=== PATIENT | female | born 1965 | race Caucasian/White ===

== ENCOUNTER 2024-09-24 13:51 | Emergency (ER) | payer BC, SELFPAY ==
[2024-09-24 13:52] VITALS: BP 183/100
[2024-09-24 14:58] VITALS: BP 143/86
[2024-09-24] MEDS: TORADOL 30 MG IV (14:59)
--- NOTE | 2024-09-24 15:17 | ED.GENMED ---
History of Present Illness
General
Chief Complaint: Back Pain
Source: patient
Exam Limitations: none
Time Seen by Provider: 09/24/24 14:09
Nursing documentation reviewed up to this point in time: agreed with
History of Present Illness
History of Present Illness:
58 y/o F with h/o anemia
on estrogen for perimenopause, usually doesn't get menstrual cycle
1 mo ago missed her estrogen and had a full period
missed dose of estrogen a few days ago and started having some mild vaginal bleeding
so when she started having cramps in her right side she thought itwas related to getting her menstrual cycle
but now sharla is right bakc/flank and wraps aroun dto RUQ
worse with deep breathing and changing position
some nausea but no vomiting, diarrhea, urinary sypmtoms
she has not had any fever/chills
but she does have worse pain with cough
the pain seems to come in waves sometimes
she called the [facility] and spoke with RN and was told to come to the ER
she has no pelvic pain
takes estrogen for hot flashes etc
Past History
Past History
ED Past Medical History: None
ED Past Surgical History: None
Social History
Tobacco: Non-smoker
Alcohol: None
Drug: None
Review of Systems
Review of Systems
Allergies reviewed?: Yes
All Other Systems: Not applicable
Phy Exam
Physical Exam
Physical Exam:
GENERAL: Alert , in no apparent distress, comfortable at rest, pain worse with movement
HEAD: NCAT
CARDIAC: Regular rate and rhythm, no edema
LUNGS: Clear breath sounds bilaterally, no acute respiratory distress, no wheezes/rales/rhonchi
ABDOMEN: Soft, RUQ tenderness, + butler's no r/g, mild R cva tenderness; , normal bowel sounds, nondistended
NEUROLOGICAL: Alert and oriented, no focal neuro deficits, CN intact, 5/5 strength, sensation intact, ambulation slight limp left leg
SKIN: Warm and dry, no rash
MUSCULOSKELETAL: No edema, well perfused.
Patient has no tenderness to palpation of the hip, minimal tenderness in the SI joint
no pain in the hip
Back: No midline tenderness, right lateral lumbar/htoracic pain, minimal tendenress to palpation laterally
neg striaght leg raise
able to flex 30 degrees
PSYCH: Normal and appropriate interaction.
Course
Orders/Labs/Results
Orders:
Orders
09/24/24 14:38
Ketorolac [Toradol] 30 mg IV NOW STA
09/24/24 14:39
Test Result ONCE
09/24/24 14:53
Complete Blood Count/With Diff Urgent
Comprehensive Metabolic Panel Urgent
D-Dimer Urgent
HCG, Serum Qualitative Screen Urgent
Lipase Urgent
09/24/24 15:34
US Abdomen Complete/Upper Urgent
Comment:
Reason For Exam: ruq pain, back pain, suspect martín
09/24/24 15:45
HYDROmorphone [Dilaudid] 0.5 mg IV NOW STA
09/24/24 18:39
CT Pe/abd/pel W Urgent
Reason For Exam: Ddimer elevation, right sided abd pain
09/24/24 19:26
Urinalysis Reflex To Culture Urgent
Date Specimen was Collected: 09/24/24
Time Specimen was Collected: 19:25
Urine Microscopic Reflex Cult Urgent
09/24/24 20:40
Oxycodone [Roxicodone] 5 mg PO NOW STA
Abnormal Lab Results
09/24/24 09/24/24
14:53 19:26
Lymphocytes % 19.7 L %
(20.5-51.1)
D-Dimer 0.58 H ug/mlFEU
(0.00-0.50)
BUN 18 H mg/dl
(7-17)
Glucose 285 H mg/dl
(70-99)
AST 101 H U/L
(14-36)
ALT 140 H U/L
(0-35)
Ur Occult Blood Reflex 4+ A
(Negative)
Urine RBC 3-6 A /HPF
(0-2)
Urine Bacteria (Reflex) Few A
(Negative)
Urine Glucose 3+ A
(Negative)
09/24/24 14:53
09/24/24 14:53
Vital Signs
Initial and Last Documented VS:
Initial Vital Signs
Temp Pulse Resp BP Pulse Ox
37.0 C 86 18 183/100 96
09/24/24 13:52 09/24/24 13:52 09/24/24 13:52 09/24/24 13:52 09/24/24 13:52
Last Documented Vital Signs
Temp Pulse Resp BP Pulse Ox
37.0 C 60 18 158/86 95
09/24/24 13:52 09/24/24 20:19 09/24/24 20:19 09/24/24 20:19 09/24/24 20:19
MDM/Problems Addressed
Differential Diagnosis Includes:
msk pain, PE, cholelithiasis/cholecystitis, kidney stone, costochonditits
MDM/Problems Addressed:
58 y/o F
on hormon therapy for perimenopausal symptoms
R sided back pain wrapping around her abdomen/flank since yesterday
she thought maybe it started out lower and felt like cramps like her menstrual cycle
she started having some bleeding after missing a dose of estrogen the other day
but the pain now is much worse, hurts with coughin and breathing
she doesn' tfeel sob
she denies nausea, vomiting, diarhrea, constipation, urinary symptoms
pain is worse with movement
she appears uncomfortabl with changing position and deep breathing but is not SOB
tender RUQ with gayatri's sign
mild tenderness right back
no rash
full hip ROM
no pelvic or RLQ tendneress
will send labs, urine
anticipate imaging;
1545 b- elevated bg 285 no h/o diabetes; pt will have fasting bg as outpatient (she was informed about her bg)
and mild transaminitis;
suspect GB
US ordered
she also has d dimer 0.58 and her age is 58
still positive but probably unlikley
will await US
if US is negative, consider CT.
signed out to basil MCKEON.
*Critical Care Note
Total Time (30-74mins, 75-104mins- exclusive of procedures): Not Applicable
ED Attending Note
-
Portions of this chart may have been created with voice recognition software.� Occasional wrong word or��sound alike� substitutions may have occurred due to the inherent limitations of voice recognition software.
Discharge Plan
Departure
Patient Disposition: Home (Routine Discharge)
Date of Disposition: 09/24/24
Time of Disposition: 20:33
Patient with high blood pressure during this ER visit?: No
Condition: Good
Covid-19: Not Applicable
Discharge Problem:
Abdominal pain
Instructions: Abdominal Pain, Adult ED
Prescriptions:
New
oxycodone 5 mg capsule
5 mg PO Q4H PRN (Reason: Pain) Qty: 14 0RF
Referrals:
Kendrick Garcia MD [Family Provider] - Tomorrow
Activity Restrictions/Additional Instructions:
Return to the emergency department immediately for any changes in/worsening of your symptoms. Please have repeat blood work in 1 week to monitor you liver enzymes. Avoid Tylenol/acetaminophen products
Interventions
Interventions:
*Risk Screen - Suicide Last Done: 09/24/24 13:52
*General Assessment Last Done: 09/24/24 13:52
*Neglect/Abuse Screening Last Done: 09/24/24 13:52
*ED COVID-19 Vaccine History Last Done: 09/24/24 13:52
*Nursing Disposition Last Done: 09/24/24 20:52
ED-Musculoskeletal Assessment Last Done: 09/24/24 14:12
Discharge Date and Time
Discharge Date/Time: 09/24/24 20:52
Print Language: ZIMBABWEAN
[2024-09-24 15:21] LABS: % Basophils 0.7 % (0-2); % Eosinophils 1.6 % (0-6); % Immature Granulocytes 0.5 % (0-0.5); % Lymphocytes 19.7 % (20.5-51.1); % Monocytes 6.2 % (1.7-9.3); % Neutrophils 71.3 % (42.2-75.2); Absolute Basophils 0.1 10^3/uL (0-0.2); Absolute Eosinophils 0.1 10^3/uL (0-0.7); Absolute Lymphocytes 1.5 10^3/uL (1.2-3.4); Absolute Monocytes 0.5 10^3/uL (0.1-0.6); Absolute Neutrophils 5.4 10^3/uL (1.4-6.5); Hematocrit 41.8 % (37.0-47.0); Hemoglobin 13.8 g/dL (12.0-16.0); Mean Corpuscular Hgb 29.2 pg (27.0-31.0); Mean Corpuscular Volume 88.4 fL (81.0-99.0); Mean Platelet Volume 10.4 fL (7.4-10.4); Nucleated Red Blood Cells % 0 %; Platelet Count 238 10^3/uL (130-400); Red Blood Cell Count 4.73 10^6/uL (4.20-5.40); Red Cell Dist. Width 12.5 % (11.5-14.5); White Blood Cell Count 7.6 10^3/uL (4.8-10.8)
[2024-09-24 15:33] LABS: ALT (SGPT) 140 U/L (0-35); AST (SGOT) 101 U/L (14-36); Albumin 4.5 g/dl (3.5-5.0); Alkaline Phosphatase 43 U/L (38-126); Blood Urea Nitrogen 18 mg/dl (7-17); Calcium 9.7 mg/dl (8.4-10.2); Carbon Dioxide 27 mmol/L (22-30); Chloride 103 mmol/L (98-107); Glucose 285 mg/dl (70-99); Lipase 62 U/L (23-300); Potassium 4.2 mmol/L (3.5-5.1); Sodium 139 mmol/L (135-145); Total Bilirubin 0.2 mg/dl (0.2-1.3); eGFR > 60.00
[2024-09-24 15:34] LABS: D-Dimer 0.58 ug/mlFEU (0.00-0.50)
[2024-09-24 15:37] LABS: HCG, Serum Qualitative Screen Negative
[2024-09-24 16:50] VITALS: BP 150/85
[2024-09-24 19:37] LABS: Urine Albumin Negative (Neg - Trace); Urine Bilirubin Negative (Negative); Urine Character Clear (Clear); Urine Color Yellow; Urine Glucose 3+ (Negative); Urine Ketone Negative (Negative); Urine Leukocyte Negative (Negative); Urine Nitrite Negative (Negative); Urine Occult Blood 4+ (Negative); Urine Urobilinogen Negative (Neg - 1+)
[2024-09-24 19:46] LABS: Urine Squamous Cell >30 /LPF (Few)
[2024-09-24 19:48] LABS: Urine Amorphous Seen; Urine Bacteria Few (Negative); Urine White Cell 0-2 /HPF (0-5)
[2024-09-24 20:19] VITALS: BP 158/86
[2024-09-24] MEDS: ROXICODONE 5 MG PO (20:48)
== END 2024-09-24 20:52 | disposition home or self-care (01) ==
LOC: EMR 13:51
PROVIDERS: Physician Assistant; EMERGENCY PHYSICIAN Student in an Organized Health Care Education/Training Program; FAMILY PHYSICIAN Internal Medicine
DX: R10.9 Unspecified abdominal pain (principal); M54.9 Dorsalgia, unspecified; R74.01 Elevation of levels of liver transaminase levels; Z79.890 Hormone replacement therapy
CPT/HCPCS: 96374; 99284; 71275; 74177; 76700; 80053; 81003; 81015; 83690; 84703; 85025; 85379; Q9967

== ENCOUNTER → 2024-10-19 08:53 | Outpatient (REF) | payer BC, SELFPAY ==
[2024-10-19 12:20] LABS: % Basophils 1.2 % (0-2); % Eosinophils 1.5 % (0-6); % Immature Granulocytes 0.2 % (0-0.5); % Lymphocytes 26.3 % (20.5-51.1); % Monocytes 6.7 % (1.7-9.3); % Neutrophils 64.1 % (42.2-75.2); Absolute Basophils 0.1 10^3/uL (0-0.2); Absolute Eosinophils 0.1 10^3/uL (0-0.7); Absolute Lymphocytes 1.4 10^3/uL (1.2-3.4); Absolute Monocytes 0.4 10^3/uL (0.1-0.6); Absolute Neutrophils 3.3 10^3/uL (1.4-6.5); Hematocrit 42.1 % (37.0-47.0); Hemoglobin 13.7 g/dL (12.0-16.0); Mean Corp Hgb Conc. 32.5 g/dL (33.0-37.0); Mean Corpuscular Hgb 29.3 pg (27.0-31.0); Nucleated Red Blood Cells % 0 %; Platelet Count 207 10^3/uL (130-400); Red Blood Cell Count 4.68 10^6/uL (4.20-5.40); Red Cell Dist. Width 12.4 % (11.5-14.5); White Blood Cell Count 5.2 10^3/uL (4.8-10.8)
[2024-10-19 13:45] LABS: Microalbumin/creatinine Ratio 35.3 mg/g
[2024-10-19 14:22] LABS: TSH Reflex To Free T4 1.12 uIU/ml (0.47-4.68)
[2024-10-19 14:23] LABS: Hepatitis B Surface Antigen Negative (Negative)
[2024-10-19 14:26] LABS: Ferritin 66.9 ng/ml (11.1-264.0)
[2024-10-19 14:42] LABS: Hepatitis B Surface Antibody Negative; Hepatitis C Antibody Negative (Negative)
[2024-10-19 16:08] LABS: ALT (SGPT) 81 U/L (0-35); AST (SGOT) 46 U/L (14-36); Albumin 4.6 g/dl (3.5-5.0); Alkaline Phosphatase 45 U/L (38-126); Blood Urea Nitrogen 13 mg/dl (7-17); Calcium 9.6 mg/dl (8.4-10.2); Carbon Dioxide 24 mmol/L (22-30); Chloride 104 mmol/L (98-107); Glucose 123 mg/dl (70-99); HDL Cholesterol 49 mg/dl; Iron 79 ug/dl (37-170); LDL Cholesterol, Calculated 80 mg/dl; Potassium 4.4 mmol/L (3.5-5.1); Sodium 138 mmol/L (135-145); Total Bilirubin 0.3 mg/dl (0.2-1.3); Total Cholesterol 145 mg/dl (50-199); Total Protein 7.1 g/dl (6.3-8.2); Triglyceride 81 mg/dl (10-149); Very Low Density Lipoprotein 16 mg/dl (0-30); eGFR > 60.00
[2024-10-19 16:17] LABS: Percent Saturation 24 % (20-50); Total Iron Binding Capacity 327 ug/dl (265-497)
== END ==
LOC: HWLAB 08:53
PROVIDERS: ATTENDING PHYSICIAN Internal Medicine
DX: E11.65 Type 2 diabetes mellitus with hyperglycemia (principal); K76.0 Fatty (change of) liver, not elsewhere classified; R74.01 Elevation of levels of liver transaminase levels; Z00.00 Encounter for general adult medical examination without abnormal findings; F98.8 Other specified behavioral and emotional disorders with onset usually occurring in childhood and adolescence; D50.0 Iron deficiency anemia secondary to blood loss (chronic); E78.5 Hyperlipidemia, unspecified
CPT/HCPCS: 36415; 80053; 80061; 82043; 82570; 82728; 83540; 83550; 84443; 85025; 86706; 86803; 87340

== ENCOUNTER → 2024-12-10 13:38 | Outpatient (REF) | payer BC, SELFPAY ==
--- NOTE | 2024-11-29 11:37 | PN.DIAED02 ---
Referral
DSME Class Series Code: [id number]
Referred For: Diabetes Self-Management Training, Medical Nutrition Therapy, Self-Blood Glucose Monitoring, Long-Term Complication Instruction, Accute Complication Instruction, Continuous Glucose Monitoring, Medication management, Insulin
Instruction, Care Coordination, Disease Management
PHI Release Authorization Form Signed: Yes
Patient Problems:
Current Active Problems
Problem Status Onset
Type 2 diabetes mellitus with hyperglycemia
Demographic
(1) Type 2 diabetes mellitus with hyperglycemia
Status: Acute Code(s): E11.65 - Type 2 diabetes mellitus with hyperglycemia
Patient's primary language-: Uruguayan
Education: Some college
Occupation: Other (client project coordinator)
Hours Worked/Week: 20-40
- Social
Primary Support Person: Self
Primary Care Takers: Self
Living Arrangements: Self & spouse
- Learning Methods
Preferred Method: Hands-on demonstration
Barriers to Learning: None
Glycemic Control
- Blood Glucose Monitoring Assessment
Date: 09/26/24 (FBS 125)
Blood glucose monitoring at home: Yes (PT PURCHASED OWN METER, CHECKED ONCE)
Monitor Brands: [employer]
Frequency: rarely
- Hyperglycemia Assessment
Experiences Hyperglycemia: No
- Blood Glucose Monitoring Results
Blood Glucose Monitoring Log:
FBG 123 10/19/2024
- Hemoglobin A1c
Date: 09/26/24
A1C Percentage (%): 8.7
Medical History of Diabetes
Previous Diabetes Education: No
Previous visit with Dietitian: No
Complications/Comorbidity/Specialist: Liver disease, Metabolic (T2D 09/2024 Ozempic 0.5 mg once weekly), Other / symptoms (ADD: Concerta ER 54 mg QD, Post menopause: Prometrium 100 mg HS, Estradiol 0.05 mg/24 h patch 2/week, iron def. anemia:
Ferrous Sulfate 325 mg QD)
Measures
- Anthropometrics
Height: 5 ft 8 in
Actual Weight: 265 lb
- Blood Pressure / Pulse
Blood pressure: 124/71
Pulse: 71
- Diabetes Management
Medical Management for Diabetes: Complete physical exam (12/10/2023), Dental exam (03/28/2022), Dilated eye exam (09/16/2024)
Self-Care
- Tobacco Usage
Do you now, or have you ever smoked?: Never smoked
- Alcohol & Drugs Usage
Drinks Alcohol: No
- Meals & Dining
Meals & Dining: Patient skips meals: Yes, Food Intolerance / Allergy: No
Primary Food Unit Nurse: Self
Primary Senior Qa Automation Engineer: Self
Dining Out Frequency: 1-3x per week
- Physical Activity
Physical Limitation: No
Patient participates in physical Activity: No
- Patient-Self Assessment
Diabetes Knowledge: Poor
Feelings About Diabetes: Acceptance
General Health: Good
Importance of Health: Extremely
Stress Level: Low
Diabetes Interferes With:: Nothing
Barriers to Diabetes Management: Nothing
Depression Survey Score: 1
- Diabetes Identification
Carries Diabetes Identification: No
Care Plan
- Education Needs
Patient Education Needs: Diabetes disease process, Chronic complications, Acute complications, Medication, Monitoring, Physical activity, Psychosocial Adjustment, Nutritional management, Goal setting & problem solving
Recommended Diabetes Training Program based on assessment: Outpatient Diabetes Education Program
- Plan of Care
Plan of Care:
Patient diagnosed with T2D September,. Has since changed diet, admits to no physical activity. SMBG once with Contour Next purchased on own, admits to pain with SMBG. Provided with sample of Contour Next glucometer. Assisted Dary on set
up and use of glucometer, with return demonstration of fingerstick with proper technique. BS results 85 mg/dL 2.5 hours post prandial. Encouraged her to contact office before class with any concerns.
--- NOTE | 2024-12-04 13:30 | PN.DIAED04 ---
Education Record
- Education Record
Class Attended: Other (INITIAL DSME ASSESSMENT)
Instructor: Registered Nurse
Pre-Program Knowledge: Needs review / Assistance
Pre-Test Score (%): 35
Goals
- Goal 1
Being Active: Exercise 30 minutes-5 times per week
Goals To Be Evaluated: Exercise 30 mins-5x/week
- Goal 2
Healthy Eating: Make better food choices
Goals To Be Evaluated: Make better food choices
- Goal 3
Monitoring: Follow monitoring schedule
Goals To Be Evaluated: Follow monitoring times
--- NOTE | 2024-12-12 14:32 | PN.DIAED14 ---
This is to notify you that your patient with diabetes, MARY BATISTA ( 1965), has enrolled in our diabetes self-management classes that are being held at [facility].
These classes will include an introduction to diabetes, diet, medication, exercise and prevention of complications. At the end of our class series, you will receive a report of your patient's participation and progress for your records.
Please contact me at the Diabetes Center, , if there is any particular information regarding your patient that might be helpful to me.
Sincerely,
Jamison GUTIERREZ-,[facility]
--- NOTE | 2024-12-12 14:32 | PN.DIAED04 ---
Education Record
- Education Record
Class Attended: Class 1
DSME Class Series Code: [id number]
Instructor: Nurse Practitioner (BRENDA Argueta)
Class Curriculum:
Outpatient Diabetes Education Program:
Class 1 (120 minutes)
Describe the diabetes disease process and treatment options
Diabetes management
Develop personal strategies to promote health and behavior change
Integrate psychosocial adjustment for daily living
Monitor blood glucose and other parameters. Interpret and use the results for self-management decision making
Prevent, detect, and treat acute complications
Class Length (mins): 120
Post-Class 1 Test Score (%): 94
== END ==
LOC: DES 13:38
PROVIDERS: ATTENDING PHYSICIAN Internal Medicine
DX: E11.65 Type 2 diabetes mellitus with hyperglycemia (principal)
CPT/HCPCS: 99078

== ENCOUNTER → 2024-12-17 10:15 | Outpatient (REF) | payer BC, SELFPAY ==
--- NOTE | 2024-12-18 15:46 | PN.DIAED04 ---
Education Record
- Education Record
Class Attended: Class 2
DSME Class Series Code: [id number]
Instructor: Registered Dietitian (Liliam White, RD, LDN, CDE)
Class Curriculum:
Outpatient Diabetes Education Program:
Class 2 (120 minutes)
Incorporate nutritional management into lifestyle
Understanding nutritional value
Understanding carbohydrate counting
Class Length (mins): 120
== END ==
LOC: DES 10:15
PROVIDERS: ATTENDING PHYSICIAN Internal Medicine
DX: E11.65 Type 2 diabetes mellitus with hyperglycemia (principal)
CPT/HCPCS: 99078

== ENCOUNTER → 2024-12-24 08:26 | Outpatient (REF) | payer BC, SELFPAY ==
--- NOTE | 2024-12-25 10:03 | PN.DIAED04 ---
Education Record
- Education Record
Class Attended: Class 3
DSME Class Series Code: [id number]
Instructor: Registered Dietitian (Liliam White, RD, LDN, CDE)
Class Curriculum:
Outpatient Diabetes Education Program:
Class 3 (120 minutes)
Incorporate nutritional management into lifestyle
Class Length (mins): 120
Post-Class 2 & 3 Test Score (%): 100
== END ==
LOC: DES 08:26
PROVIDERS: ATTENDING PHYSICIAN Internal Medicine
DX: E11.65 Type 2 diabetes mellitus with hyperglycemia (principal)
CPT/HCPCS: 99078

== ENCOUNTER → 2024-12-26 08:06 | Outpatient (REF) | payer BC, SELFPAY | LOC: HWLAB 08:06 | PROVIDERS: ATTENDING PHYSICIAN Internal Medicine; FAMILY PHYSICIAN Internal Medicine | DX: Z00.00 Encounter for general adult medical examination without abnormal findings (principal); E11.9 Type 2 diabetes mellitus without complications | CPT/HCPCS: 36415; 83036 ==

== ENCOUNTER → 2024-12-31 09:12 | Outpatient (REF) | payer BC, SELFPAY ==
--- NOTE | 2025-01-01 14:46 | PN.DIAED04 ---
Education Record
- Education Record
Class Attended: Class 4
DSME Class Series Code: [id number]
Instructor: Nurse Practitioner (Carol Garcia NP)
Class Curriculum:
Outpatient Diabetes Education Program:
Class 4 (120 minutes)
Develop personal strategies to promote health and behavior change
Incorporate physical activity into lifestyle
Utilize medications safety for maximum therapeutic effectiveness
Understand different medication/insulin mechanism of action
Preparing for travel
Class Length (mins): 120
Post-Class 4 Test Score (%): 87
== END ==
LOC: DES 09:12
PROVIDERS: ATTENDING PHYSICIAN Internal Medicine
DX: E11.65 Type 2 diabetes mellitus with hyperglycemia (principal)
CPT/HCPCS: 99078

== ENCOUNTER → 2025-01-07 12:18 | Outpatient (REF) | payer BC, SELFPAY ==
--- NOTE | 2025-01-10 09:59 | PN.DIAED04 ---
Education Record
- Education Record
Class Attended: Class 5
DSME Class Series Code: [id number]
Instructor: Nurse Practitioner (BRENDA Argueta)
Class Curriculum:
Outpatient Diabetes Education Program:
Class 5 (120 minutes)
Prevent, detect, and treat acute complications
Prevent, detect, and treat chronic complications through risk reduction
Develop personal strategies to address psychosocial issues and concerns
Development of diabetes self-management support plan
Letter to physician with DSMS plan attached sent
Class Length (mins): 120
Post-Test Score (%): 83
Post-Program Assessment
- Post-Program Assessment
Actual Weight: 257 lb
Blood pressure: 148/77
Post-Program Depression Survey Score: 1
Reviewing Previous Goals?: Yes
Pre-Program Depression Survey Score: 1
- Goals 1 Evaluation
Goals To Be Evaluated: Exercise 30 mins-5x/week
- Goals 2 Evaluation
Goals To Be Evaluated: Make better food choices
- Goals 3 Evaluation
Goals To Be Evaluated: Follow monitoring times
--- NOTE | 2025-01-10 10:05 | PN.DIAED16 ---
This is to notify you that your patient with diabetes, MARY BATISTA ( 1965), has attended the entire series of Diabetes Self-Management Education Classes.
Class 1 (120 minutes): Diabetes Overview - monitoring, stress/psychosocial adjustment, support, goal setting
Class 2 (120 minutes): Meal Planning - serving sizes, menu plans
Class 3 (120 minutes): Introduction to Carbohydrate Counting, Analyzing Food Labels
Class 4 (120 minutes): Medication, Exercise and Activity
Class 5 (120 minutes): Sick Day Management, Strategies to Reduce Complications, Problem Solving, Resources
The following behavioral goals were identified:
Exercise 30 mins-5x/week
Make better food choices
Follow monitoring times
A follow-up call will be made within three to six months to evaluate attainment of these goals and to check post-program Hemoglobin A1c and overall progress. All class participants are encouraged to contact me if I can be any further assistance in
learning how to manage their diabetes.
Sincerely,
Jamison GUTIERREZ-, [facility]
== END ==
LOC: DES 12:18
PROVIDERS: ATTENDING PHYSICIAN Internal Medicine
DX: E11.65 Type 2 diabetes mellitus with hyperglycemia (principal)
CPT/HCPCS: 99078

== ENCOUNTER → 2025-03-29 10:52 | Outpatient (REF) | payer BC, SELFPAY ==
[2025-03-30 10:52] LABS: Glycohemoglobin (HgbA1c) 5.6 % (4.0-5.6)
== END ==
LOC: HWLAB 10:52
PROVIDERS: ATTENDING PHYSICIAN Internal Medicine; FAMILY PHYSICIAN Internal Medicine
DX: Z00.00 Encounter for general adult medical examination without abnormal findings (principal); E11.9 Type 2 diabetes mellitus without complications
CPT/HCPCS: 36415; 83036

== ENCOUNTER → 2025-06-28 08:13 | Outpatient (REF) | payer BC, SELFPAY ==
[2025-06-28 10:37] LABS: Glycohemoglobin (HgbA1c) 5.7 % (4.0-5.6)
== END ==
LOC: HWLAB 08:13
PROVIDERS: ATTENDING PHYSICIAN Internal Medicine; FAMILY PHYSICIAN Internal Medicine
DX: E11.9 Type 2 diabetes mellitus without complications (principal)
CPT/HCPCS: 83036

== ENCOUNTER → 2025-09-30 11:51 | Outpatient (REF) | payer BC, SELFPAY ==
[2025-09-30 14:38] LABS: Glycohemoglobin (HgbA1c) 5.9 % (4.0-5.9)
== END ==
LOC: REG 11:51
PROVIDERS: ATTENDING PHYSICIAN Internal Medicine
DX: E11.9 Type 2 diabetes mellitus without complications (principal)
CPT/HCPCS: 36415; 83036

== ENCOUNTER 2025-10-14 21:04 | Emergency (ER) | payer BC, SELFPAY ==
[2025-10-14 21:30] VITALS: BP 149/90
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
[2025-10-15 01:54] VITALS: BP 132/61
== END 2025-10-15 02:35 | disposition left against medical advice (07) ==
LOC: EMR 21:04
PROVIDERS: EMERGENCY PHYSICIAN Emergency Medicine; FAMILY PHYSICIAN Internal Medicine
DX: S06.0X0A Concussion without loss of consciousness, initial encounter (principal); W00.0XXA Fall on same level due to ice and snow, initial encounter; H53.2 Diplopia; Z53.29 Procedure and treatment not carried out because of patient's decision for other reasons
CPT/HCPCS: 99285; 70450; 72125